=== PATIENT | female | born 1980 | race Hispanic/Latino ===

== ENCOUNTER 2017-06-15 09:33 | Outpatient (CLI) | payer OTHER ==
--- NOTE | 2017-06-15 13:05 | ULT ---
ULTRASOUND OBSTETRICAL COMPLETE: 06/15/2017 HISTORY: A 36-year-old female with ICD-10: O09.523 (supervision of elderly multigravida in third trimester ). FINDINGS: number: [place]. lie: Cephalic. Maternal cervix: Poorly visualized because obscured by head. Placenta: Posterior. No placenta previa. Amniotic fluid volume: DONNA of 11.5 cm. heart rate: 143 bpm The following anatomy is visualized, with no evidence of anomalies: Head, cerebellum, and cisterna magna. The rest of the anatomy was not evaluated in detail. biometry: Head circumference (HC): 30.8 cm 34w 2d Biparietal diameter (BPD): 8.1 cm 32w 4d Abdominal circumference (AC): 30.4 cm 34w 2d Femur length (FL): 6.6 cm 33w 6d Average ultrasound age (AUA): 33w 6d Estimated date of confinement (EDC): 07/28/2017 Last menstrual period (LMP): Unknown. Gestational age by LMP: Unknown. Estimated weight (EFW): 2327 g, +/- 344 g (5 lbs 2 oz, +/- 12 oz). IMPRESSION: 1. Live third trimester intrauterine gestation. 2. Estimated gestational age of 33 weeks, 6 days. 3. Cephalic lie. EMILIANO Pierre POS: RICK
== END 2017-06-15 09:34 | disposition home or self-care (01) ==
LOC: ULT 09:33
PROVIDERS: ATTEND Family Medicine
DX: O09.523 Supervision of elderly multigravida, third trimester (principal); O32.9XX0 Maternal care for malpresentation of fetus, unspecified, not applicable or unspecified; Z3A.33 33 weeks gestation of pregnancy
CPT/HCPCS: 76805